=== PATIENT | female | born 1955 | race Caucasian/White ===

== ENCOUNTER 2018-11-23 07:01 | Day surgery (SDC) | payer OTHER | END 2018-11-23 12:10 | disposition home or self-care (01) | LOC: AMB-ENDOS 07:01 → ADM 13:30 | DX: D12.2 Benign neoplasm of ascending colon (principal); K57.30 Diverticulosis of large intestine without perforation or abscess without bleeding ==

== ENCOUNTER 2023-01-13 08:52 | Day surgery (SDC) | payer OTHER | END 2023-01-13 16:25 | disposition home or self-care (01) | LOC: AMB-ENDOS 08:52 | PROVIDERS: ATTEND Colon & Rectal Surgery | DX: D12.3 Benign neoplasm of transverse colon (principal); K57.30 Diverticulosis of large intestine without perforation or abscess without bleeding; K64.8 Other hemorrhoids; R19.4 Change in bowel habit; Z20.822 Contact with and (suspected) exposure to COVID-19 ==

== ENCOUNTER 2023-08-12 14:57 | Outpatient (CLI) | payer OTHER | END 2023-08-12 15:01 | disposition home or self-care (01) | LOC: SONOGRAMA 14:57 | PROVIDERS: ATTEND Pathology Anatomic Pathology & Clinical Pathology | DX: D44.0 Neoplasm of uncertain behavior of thyroid gland (principal); E04.2 Nontoxic multinodular goiter ==

== ENCOUNTER → 2024-05-19 10:15 | Outpatient (CLI) | payer OTHER | END | disposition home or self-care (01) | LOC: LAB 10:15 | PROVIDERS: ATTEND Internal Medicine Cardiovascular Disease | DX: I10 Essential (primary) hypertension (principal) ==